=== PATIENT | male | born 1975 | race African-American/Black ===

== ENCOUNTER 2021-10-03 19:52 | Emergency (ER) | payer MEDICAID ==
[~2021-10-03] VITALS: Ht 172.7 cm; Wt 85.0 kg
[2021-10-03] MEDS ORDERED: OLANZAPINE 5MG TABLET ODT PO STA (20:30)
[2021-10-03 22:01] LABS: BASOPHILS % 0.7 % (0.0-2.0); EOSINOPHILS % 4.3 % (0.0-5.0); HEMATOCRIT. 34.3 % (42.0-52.0); HEMOGLOBIN. 11.7 g/dL (14.0-18.0); LYMPHOCYTES % 16.1 % (20.0-50.0); MEAN CORPUSCULAR HEMOGLOBIN 30.6 pg (28.0-32.0); MEAN PLATELET VOLUME 7.2 fl (7.4-10.4); MONOCYTES % 7.2 % (2.0-8.0); NEUTROPHILS % 71.7 % (40.0-76.0); PLATELET 303 x1000/uL (130-400); RED BLOOD CELL COUNT 3.81 mill/uL (4.7-6.1); RED CELL DISTRIBUTION WIDTH 13.8 % (11.6-14.6)
[2021-10-03 22:05] LABS: CHLORIDE 106 mEq/L (98-107)
[2021-10-03 22:07] LABS: *AMPHETAMINES SCREEN URINE PRESUMTIVE POSITIVE (NEGATIVE); *BARBITURATES SCREEN URINE NEGATIVE (NEGATIVE); *BENZODIAZEPINES SCREEN URINE NEGATIVE (NEGATIVE)
[2021-10-03 22:08] LABS: *COCAINE SCREEN URINE NEGATIVE (NEGATIVE); CANNABINOID URINE SCREEN PRESUMTIVE POSITIVE (NEGATIVE); HCG SCREEN NEGATIVE; METHADONE URINE SCREEN NEGATIVE (NEGATIVE); OPIATES URINE SCREEN NEGATIVE (NEGATIVE); PHENCYCLIDINE URINE SCREEN PRESUMTIVE POSITIVE (NEGATIVE)
[2021-10-03 22:10] LABS: ETHANOL BLOOD < 10 mg/dL
[2021-10-04 00:28] VITALS: BP 123/60
== END 2021-10-04 01:29 | disposition home or self-care (01) ==
LOC: ER 19:52
DX: F19.10 Other psychoactive substance abuse, uncomplicated (principal); F16.10 Hallucinogen abuse, uncomplicated; I10 Essential (primary) hypertension; Z20.822 Contact with and (suspected) exposure to COVID-19; Z59.00 Homelessness unspecified; Z86.59 Personal history of other mental and behavioral disorders
CPT/HCPCS: 36415; 80048; 80076; 80305; 80307; 80320; 80329; 84703; 85025; 99283; C9803; U0003; U0005; G0480